=== PATIENT | male | born 1955 | race Caucasian/White ===

== ENCOUNTER 2023-06-04 07:37 | Day surgery (SDC) | payer OTHER ==
[2023-05-29 15:54] VITALS: BMI 25.9
[2023-06-04] MEDS ORDERED: LIDOCAINE HCL/PF 2% SDV 5ML VIAL ONE (07:44)
[2023-06-04] MEDS ORDERED: PROPOFOL 160 ML ONE (07:44)
[2023-06-04 08:56] VITALS: TEMP 97.9
[2023-06-04 09:13] VITALS: BP 91/60; PULSE 74; RESP 19
== END 2023-06-04 09:07 | disposition home or self-care (01) ==
LOC: FASU-ENDO 07:37
PROVIDERS: ATTEND Internal Medicine Gastroenterology
PROC: 0DJD8ZZ Inspection of Lower Intestinal Tract, Via Natural or Artificial Opening Endoscopic (ICD-10-PCS; principal; 2023-06-04 08:18)
DX: Z12.11 Encounter for screening for malignant neoplasm of colon (principal); K57.30 Diverticulosis of large intestine without perforation or abscess without bleeding